=== PATIENT | male | born 1995 | race Two or more races ===

== ENCOUNTER 2024-02-29 12:36 | Inpatient (IN) | payer MEDICAID, OTHER ==
[~2024-02-29] VITALS: Ht 167.6 cm; Wt 102.0 kg
--- NOTE | 2024-02-29 13:20 | ED.PDOC ---
SOB-HPI HPI Comments 28y M who presents to the ED for chief complaint of flu-like symptoms. Pt states he has been having flu-like symptoms for the past 3-4 days. Pt states he has been having cough, congestion and runny nose with associated headache. Pt states he has sick contact of father at home. Pt otherwise denies any other symptoms. Pt in the ED has noted fever of 102.4F. Pt denies any other symptoms at this time. Chief Complaint: Flu like Time Seen by MD: 13:14 Information Source: Patient Mode of Arrival: Ambulatory Brought in by: self Constitutional: reports: fever; denies: chills, diaphoresis, fatigue, malaise, sweats, weakness, others EENTM: reports: nose congestion; denies: blurred vision, double vision, ear bleeding, ear discharge, ear drainage, ear pain, ear ringing, eye pain, eye redness, hearing loss, mouth pain, mouth swelling, nasal discharge, nose bleeding, nose pain, photophobia, tearing, throat pain, throat swelling, voice changes, others Respiratory: reports: cough, shortness of breath; denies: hemoptysis, orthopnea, SOB at rest, SOB with excertion, stridor, wheezing, others Cardiovascular: denies: chest pain, dizzy spells, diaphoresis, Dyspnea on exertion, edema, irregular heart beat, left arm pain, lightheadedness, palpitations, PND, syncope, others Gastrointestinal: denies: abdomen distended, abdominal pain, blood streaked bowels, constipated, diarrhea, dysphagia, difficulty swallowing, hematemesis, melena, nausea, poor appetite, poor fluid intake, rectal bleeding, rectal pain, vomiting, others Genitourinary: denies: burning, dysuria, flank pain, frequency, hematuria, incontinence, penile discharge, penile sore, pain, testicle pain, testicle swelling, urgency, others Neurological: denies: dizziness, fainting, headache, left sided numbness, left sided weakness, numbness, paresthesia, pre-existing deficit, right sided numbness, right sided weakness, seizure, speech problems, tingling, tremors, weakness, others Musculoskeletal: denies: back pain, gout, joint pain, joint swelling, muscle pain, muscle stiffness, neck pain, others Integumetry: denies: bruises, change in color, change in hair/nails, dryness, laceration, lesions, lumps, rash, wounds, others Allergic/Immunocompromised: denies: Difficulty Healing, Frequent Infections, Hives, Itching, others Hematologic/Lymphatic: denies: anemia, blood clots, easy bleeding, easy bruising, swollen glands, others Endocrine: denies: excessive hunger, excessive sweating, excessive thirst, excessive urination, flushing, intolerance to cold, intolerance to heat, unexplained weight gain, unexplained weight loss, others Psychiatric: denies: anxiety, bipolar disorder, depression, hopeless, panic disorder, schizophrenia, sleepless, suicidal, others All Other Systems: Reviewed and Negative Physical Exam General Appearance: Moderate Distress HEENT: Normal ENT Inspection, Pharynx Normal, TMs Normal Neck: Full Range of Motion, Non-Tender, Normal, Normal Inspection Respiratory: Chest Non-Tender, No Accessory Muscle Use, No Respiratory Distress, Wheezing Cardiovascular: No Edema, No JVD, No Murmur, No Gallop, Normal Peripheral Pulses, Regular Rate/Rhythm Breast Exam: Deferred Gastrointestinal: No Organomegaly, Non Tender, No Pulsatile Mass, Normal Bowel Sounds, Soft Genitalia: Deferred Pelvic: Deferred Rectal: Deferred Extremities: No calf tenderness, Normal capillary refill, Normal inspection, Normal range of motion, Non-tender, No pedal edema Musculoskeletal : Apperance: Normal Neurologic: Alert, account review specialist II-XII nml as Tested, No Motor Deficits, Normal Affect, Normal Mood, No Sensory Deficits Cerebellar Function: Normal Reflexes: Normal Skin: Dry, Normal Color, Warm Peripheral Pulses: 3+ Radial (R), 3+ Radial (L) Lymphatic: No Adenopathy Was a procedure done? Was a procedure done?: No Differential Dx Differential Diagnosis: Anxiety, Asthma, Bronchitis, Pneumonia, Respiratory Distress Comments influenza A and B, COVID, viral syndrome X-Ray, Labs, Meds, VS Vital Signs Date Time Temp Pulse Resp B/P (MAP) Pulse Ox O2 Delivery O2 Flow Rate FiO2 02/29/24 13:32 96 Room Air* 0 21 02/29/24 13:30 100.1 67 20 133/72 (92) 100 100.1 02/29/24 12:47 102.4 135 18 122/82 (95) 95 Lab Test 02/29/24 13:41 Range/Units Influenza Type A Antigen Pending Influenza Type B Antigen Pending SARS-CoV-2 Antigen (Rapid) Pending Current Medications Medications (Trade) Dose Ordered Sig/Caitie Route Start Time Stop Time Status Last Admin Methylprednisolone Sodium Succinate (Solu Medrol) 125 mg ONCE ONCE IV 02/29/24 13:15 02/29/24 13:16 DC 02/29/24 13:30 Albuterol (Ventolin Medneb) 5 mg ONCE ONCE NEB 02/29/24 13:15 02/29/24 13:16 DC 02/29/24 13:53 Ipratropium [place] (Atrovent Medneb) 0.5 mg ONCE ONCE NEB 02/29/24 13:15 02/29/24 13:16 DC 02/29/24 13:53 Ceftriaxone Sodium 50 ml @ 100 mls/hr ONCE ONCE IV 02/29/24 13:15 02/29/24 13:44 DC 02/29/24 13:30 Patient alert. Complaining of cough. Possible pneumonia. Saturation above 95%. Fever. Establish intravenous access. Was given steroid. Was given breathing treatment. Was given Rocephin. Reviewed his history. Explained to the patient. Continue cardiac monitoring. Time of 1ST Reevaluation: 13:45 Reevaluation 1ST: Unchanged Patient Education/Counseling: Diagnosis, Treatment Family Education/Counseling: No Family Present Departure 1 Departure Time of Disposition: 14:28 Impression: Primary Impression: Acute respiratory distress Additional Impression: Pneumonitis Disposition: ADMITTED INPATIENT Admit to: Med Surg Condition: Guarded Critical Care Note Critical Care Time?: Yes (45 min-critical care time only) Stability Stability form required: No Heart Score Heart Score: Heart Score Response (Comments) Value History N/A 0 EKG N/A 0 Age N/A 0 Risk Factors N/A 0 Troponin N/A 0 Total 0 I personally scribed for MARI GARCIA MD ([email or web address]) on 02/29/24 at 13:20. Electronically submitted by Latisha Lewis ([email or web address]). MARI GARCIA MD Feb 29, 2024 13:20
[2024-02-29] MEDS: methylPREDNISolone SOD SUCC 125 MG/2 ML VL IV ONE (13:30)
[2024-02-29] MEDS: cefTRIAXone 1GM/50ML D5W 50 ML IV ONE (13:30)
[2024-02-29 13:32] VITALS: O2SAT 96
[2024-02-29] MEDS: ALBUTEROL SULF 2.5 MG/0.5ML(0.5%) NEB SOLN NEB ONE (13:53)
[2024-02-29] MEDS: IPRATROPIUM BROM 0.5 MG/2.5ML INH SOL NEB ONE (13:53)
[2024-02-29 14:34] LABS: COVID19 ANTIGEN SOFIA FIA NEGATIVE (NEGATIVE)
[2024-02-29 14:36] LABS: Rapid Influenza A Positive (Negative); Rapid Influenza B Negative (Negative)
--- NOTE | 2024-02-29 14:55 | DVH ---
CHEST RADIOGRAPH Indication: cough Technique: Single frontal view of the chest was obtained COMPARISON: None FINDINGS: Lines and Tubes: None Lungs: Clear Pleura: No effusion. No pneumothorax. Cardiomediastinal contours: Unremarkable Bones: Unremarkable IMPRESSION: 1. No acute disease.
[2024-02-29] MEDS: AZITHROMYCIN 500MG/ 250ML 250 ML IV ONE (16:18)
[2024-03-01] VITALS (9 sets, daily range): BP systolic 103–124; BP diastolic 55–71; PULSE 97–115; RESP 17–21; TEMP 98.2–99.7; O2SAT 95–98
[2024-03-01] MEDS: OSELTAMIVIR 75 MG CAP PO ONE (00:17)
[2024-03-01 00:20] LABS: Basophils # (auto) 0 10 ^3/uL (0-0.2); Basophils % (auto) 0.4 % (0.0-2.0); Eosinophils # (auto) 0 10 ^3/uL (0-0.8); Hematocrit 47.1 % (41.0-53.0); Hemoglobin 16.2 g/dL (13.5-17.5); Lymphocytes # (auto) 1.4 10 ^3/uL (0.4-5.4); Lymphocytes % (auto) 15.6 % (10.0-50.0); Mean Corpuscular Hemoglobin 30.3 pg (28.0-32.0); Mean Corpuscular Hgb Conc. 34.4 g/dL (32.0-36.0); Mean Corpuscular Volume 87.9 fL (80.0-100.0); Monocytes # (auto) 0.2 10 ^3/uL (0-1.3); Monocytes % (auto) 2.4 % (0.0-12.0); Neutrophils # (auto) 7.3 10 ^3/uL (1.6-8.6); Neutrophils % (auto) 81.6 % (37.0-80.0); Platelet Count (auto) 276 10^3/uL (140-450); Red Blood Cells 5.36 10^6/uL (4.5-5.90); Red Cell Distribution Width 13.3 % (11.8-14.3); White Blood Cell 8.9 10^3/uL (4.4-10.8)
[2024-03-01] MEDS: SODIUM CHLORIDE 0.9% 1,000 ML IV ONE (00:21)
[2024-03-01 00:38] LABS: Alkaline Phosphatase 71 U/L (46-116); Anion Gap 9 (5-15); Aspartate Aminotransferase 33 U/L (13-40); BUN/Creatinine Ratio 9.6 (10.0-20.0); Blood Urea Nitrogen 11 mg/dL (9-23); Calcium 10.3 mg/dL (8.7-10.4); Carbon Dioxide 24 mmol/L (20-31); Chloride 104 mmol/L (98-107); Potassium 4.3 mmol/L (3.5-5.1); Sodium 137 mmol/L (136-145)
[2024-03-01 00:39] LABS: Alanine Aminotransferase 102 U/L (7-40); Albumin 5.1 g/dL (3.2-4.8); Bilirubin, Total 0.9 mg/dL (0.2-1.0); Glucose 142 mg/dL (74-106); Total Protein 8.3 g/dL (5.7-8.2)
--- NOTE | 2024-03-01 05:14 | DVHHPRES ---
History of Present Illness Resident Creating Document: [place]NTHIAJORDINDAK[place] RESIDENT History of Present Illness Patient is a 28-year-old male significant past medical history came to the ED with a chief complain of flu-like symptoms in the past 3-4 days. Patient reports about 4 days ago he started having cough, cold, congestion, sore throat associated with headache fever and chills. Last night patient reported he had difficulty breathing as he was coughing nonstop following which she came to the ED today for further evaluation. Past medical history: None Past surgical history: None Social history: Denies smoking, alcohol, other illicit drug use No home medication Review of Systems Review of Systems Patient reports to be feeling better time he has come to the ED. Denies shortness of breath. No fever, no difficulty swallowing, cough has improved Allergies: Coded Allergies: NO KNOWN ALLERGIES (Unverified , 02/29/24) Medications Current Medications Medications Dose Ordered Sig/Caitie Route Start Time Stop Time Status Last Admin Dose Admin Azithromycin 250 ml @ 125 mls/hr DAILY@1600 IV 03/01/24 16:00 Oseltamivir Phosphate 75 mg Q12HR PO 03/01/24 10:00 03/06/24 09:59 UNV Exam Vital Signs Vital Signs Date Time Temp Pulse Resp B/P (MAP) Pulse Ox O2 Delivery O2 Flow Rate FiO2 03/01/24 04:00 98.7 92 19 113/72 (86) 95 98.7 03/01/24 03:38 Room Air* 0 21 Exam Physical Examination Constitutional: Patient was alert and oriented to time, place and person and does not appear to be in any acute distress. Gen - no pallor, no icterus, no cyanosis, no clubbing, no LAD, no edema . Skin - Patients skin is warm and dry.. HEENT - normocephalic, atraumatic, moist mucous membranes. Bilateral tonsillar enlargement is seen without purulent exudate. Neck - full ROM, no LAD Pulmonary - B/L vesicular breath sounds. no crackles , no wheezing, no stridor. cardiovascular - normal S1,S2 heard. no murmurs heard. peripheral pulses radial 2+, pedal 2+. GI - soft abdomen without tenderness to palpation . no hepatospleenomegaly. Bowel sounds normoactive Neurological - Bilateral upper extremity strength 5/5, bilateral lower extremity strength 5/5, no facial droop, normal speech, no tremor, no sensory deficiets. Labs/Xrays Labs Test 02/29/24 23:51 02/29/24 13:41 Range/Units White Blood Count 8.9 4.4-10.8 10^3/uL Red Blood Count 5.36 4.5-5.90 10^6/uL Hemoglobin 16.2 13.5-17.5 g/dL Hematocrit 47.1 41.0-53.0 % Mean Corpuscular Volume 87.9 80.0-100.0 fL Mean Corpuscular Hemoglobin 30.3 28.0-32.0 pg Mean Corpuscular Hemoglobin Concent 34.4 32.0-36.0 g/dL Red Cell Distribution Width 13.3 11.8-14.3 % Platelet Count 276 140-450 10^3/uL Mean Platelet Volume 8.1 6.9-10.8 fL Neutrophils (%) (Auto) 81.6 H 37.0-80.0 % Lymphocytes (%) (Auto) 15.6 10.0-50.0 % Monocytes (%) (Auto) 2.4 0.0-12.0 % Eosinophils (%) (Auto) 0.0 0.0-7.0 % Basophils (%) (Auto) 0.4 0.0-2.0 % Neutrophils # (Auto) 7.3 1.6-8.6 10 ^3/uL Lymphocytes # (Auto) 1.4 0.4-5.4 10 ^3/uL Monocytes # (Auto) 0.2 0-1.3 10 ^3/uL Eosinophils # (Auto) 0 0-0.8 10 ^3/uL Basophils # (Auto) 0 0-0.2 10 ^3/uL Nucleated Red Blood Cells 0.0 % Sodium Level 137 136-145 mmol/L Potassium Level 4.3 3.5-5.1 mmol/L Chloride Level 104 98-107 mmol/L Carbon Dioxide Level 24 20-31 mmol/L Anion Gap 9 5-15 Blood Urea Nitrogen 11 9-23 mg/dL Creatinine 1.14 0.700-1.30 mg/dL Glomerular Filtration Rate Calc 91 >90 mL/min BUN/Creatinine Ratio 9.6 L 10.0-20.0 Serum Glucose 142 H 74-106 mg/dL Calcium Level 10.3 8.7-10.4 mg/dL Total Bilirubin 0.9 0.2-1.0 mg/dL Aspartate Amino Transferase (AST) 33 13-40 U/L Alanine Aminotransferase (ALT) 102 H 7-40 U/L Alkaline Phosphatase 71 46-116 U/L Total Protein 8.3 H 5.7-8.2 g/dL Albumin 5.1 H 3.2-4.8 g/dL Influenza Type A Antigen Positive Negative Influenza Type B Antigen Negative Negative SARS-CoV-2 Antigen (Rapid) Negative NEGATIVE Assessment/Plan Assessment/Plan # acute tonsillitis # influenza infection # sirs positive - bilateral swollen tonsils seen oral examination - given azithromycin 500 mg IV and ceftriaxone 1 g IV once - nebulizer with a ipratropium albuterol given once and 1 dose of IV Solu-Medrol 125 mg given - patient is started on Augmentin 875 mg q.12 hours - oseltamivir 75 mg q.12 hours p.o. - DuoNebs p.r.n. for shortness of breath - IV fluids 1 L NS at 125 mL/hr Goals of care discussed with the patient for over 21 minutes. Full code Plan discussed with Dr. Ndiaye Plan discussed with: Patient My Orders Orders - CAROL MARIE RESIDENT Procedure Category Date Status Time Admit ADMIT 02/29/24 Transmitted 23:10 Azithromycin 500mg/ PHA 03/01/24 In Process 250ml (Zithromax 50 16:00 Urinalysis LAB 02/29/24 Logged 23:10 Drug Screen LAB 02/29/24 Logged 23:10 Oseltamivir 75mg PHA 03/01/24 Pending Capsule (Tamiflu 75mg 10:00 Sodium Chloride 0.9% PHA 02/29/24 In Process 23:30 Date of Service: Feb 29, 2024 Billing Provider: MY NDIAYE MD Common Visit Codes: [id number] INP/OBS CARE (HIGH) CAROL MARIE RESIDENT Mar 01, 2024 05:14 MY NDIAYE MD Mar 01, 2024 11:18
[2024-03-01] MEDS ORDERED: ACETAMINOPHEN 325 MG TAB PO PRN (06:45)
[2024-03-01 07:05] LABS: Urine Bacteria None Seen /hpf (None Seen)
[2024-03-01 07:22] LABS: Urine Blood Negative /uL (Negative); Urine Budding Yeast OCCASIONAL /hpf (None Seen); Urine Clarity Clear (Clear); Urine Color Yellow (Yellow); Urine Hyaline Cast FEW /lpf (0 - 2); Urine Mucus FEW (None Seen); Urine Protein, UAD 2+ (Negative); Urine Specific Gravity 1.034 (1.001-1.035); Urine Squamous Epithelial Cell None Seen /hpf (<5); Urine Urobilinogen Normal (Negative); Urine WBC <1 /hpf (0 - 3); Urine pH 5.5 (5.0-9.0)
[2024-03-01 07:35] LABS: Opiate Scree,Urine Neg (NEGATIVE)
[2024-03-01 07:36] LABS: Amphetamine Screen, Urine Neg (NEGATIVE); Barbiturate Scree,Urine Neg (NEGATIVE); Benzodiazephine Screen, Urine Neg (NEGATIVE); Cannabinoid Screen, Urine Neg (NEGATIVE); Cocaine Screen, Urine Neg (NEGATIVE); Phencyclidine Screen, Urine Neg (NEGATIVE)
[2024-03-01 08:09] LABS: Basophils # (auto) 0 10 ^3/uL (0-0.2); Basophils % (auto) 0.2 % (0.0-2.0); Eosinophils # (auto) 0 10 ^3/uL (0-0.8); Hematocrit 44.4 % (41.0-53.0); Hemoglobin 15.3 g/dL (13.5-17.5); Lymphocytes # (auto) 1.8 10 ^3/uL (0.4-5.4); Lymphocytes % (auto) 20.1 % (10.0-50.0); Mean Corpuscular Hemoglobin 30.4 pg (28.0-32.0); Mean Corpuscular Hgb Conc. 34.5 g/dL (32.0-36.0); Mean Corpuscular Volume 88.1 fL (80.0-100.0); Monocytes # (auto) 1.1 10 ^3/uL (0-1.3); Monocytes % (auto) 12.1 % (0.0-12.0); Neutrophils # (auto) 6.1 10 ^3/uL (1.6-8.6); Neutrophils % (auto) 67.6 % (37.0-80.0); Platelet Count (auto) 253 10^3/uL (140-450); Red Blood Cells 5.04 10^6/uL (4.5-5.90); Red Cell Distribution Width 13.2 % (11.8-14.3); White Blood Cell 9.1 10^3/uL (4.4-10.8)
[2024-03-01 08:19] LABS: Albumin 4.8 g/dL (3.2-4.8); Alkaline Phosphatase 64 U/L (46-116); Anion Gap 9 (5-15); Aspartate Aminotransferase 31 U/L (13-40); BUN/Creatinine Ratio 13.5 (10.0-20.0); Bilirubin, Total 0.8 mg/dL (0.2-1.0); Blood Urea Nitrogen 14 mg/dL (9-23); Calcium 9.9 mg/dL (8.7-10.4); Carbon Dioxide 24 mmol/L (20-31); Chloride 105 mmol/L (98-107); Sodium 138 mmol/L (136-145); Total Protein 7.6 g/dL (5.7-8.2)
[2024-03-01 08:20] LABS: Alanine Aminotransferase 90 U/L (7-40); Glucose 126 mg/dL (74-106)
[2024-03-01] MEDS: OSELTAMIVIR 75 MG CAP PO SCH (09:48)
[2024-03-01] MEDS: AMOXICILLIN/CLAVUL 875 MG TAB PO SCH (09:48)
[2024-03-01] MEDS: IPRATROPIUM BROM 0.5 MG/2.5ML INH SOL NEB PRN (09:53)
[2024-03-01] MEDS: ALBUTEROL SULF 2.5 MG/0.5ML(0.5%) NEB SOLN NEB PRN (09:53)
[2024-03-01] MEDS ORDERED: AZITHROMYCIN 500MG/ 250ML 250 ML IV SCH (16:00)
--- NOTE | 2024-03-01 16:58 | DVHPNRES ---
Progress Note Date Seen: Mar 01, 2024 Resident Creating Document: HERBIE RAIN AURORA Has the PT tested + for MRSA If YES, has PT been informed?: No Medical Necessity Reason Pt with a Central, PICC or Fol: No Subjective Review of Systems Patient is a 28-year-old male significant past medical history came to the ED with a chief complain of flu-like symptoms in the past 3-4 days. Patient reports about 4 days ago he started having cough, cold, congestion, sore throat associated with headache fever and chills. Last night patient reported he had difficulty breathing as he was coughing nonstop following which she came to the ED today for further evaluation. The patient was also complaining of shortness of breath, could not maintain saturation on room air, put on oxygen through nasal cannula at 2 liters/minute. Past medical history: None Past surgical history: None Social history: Denies smoking, alcohol, other illicit drug use No home medication Today, the patient was seen and examined at the bedside. Patient was feeling better since admission. Also complained of shortness of breaths, patient required oxygen through nasal cannula. Patient reports: No new complaints, Feels better Changes from previous H/P or p: No Changes Objective vital signs Vital Sign Date Time Temp Pulse Resp B/P (MAP) Pulse Ox O2 Delivery O2 Flow Rate FiO2 03/01/24 13:24 106 21 96 Nasal Cannula* 2 28 03/01/24 13:24 99.6 115/60 (78) 99.6 Total Intake and Output 02/29/24 02/29/24 03/01/24 15:00 23:00 07:00 Intake Total 125 ml Balance 125 ml medications Current Medications Medications Dose Ordered Sig/Caitie Route Start Time Stop Time Status Last Admin Dose Admin Oseltamivir Phosphate 75 mg Q12HR PO 03/01/24 10:00 03/06/24 09:59 03/01/24 09:48 75 MG Amoxicillin/ Clavulanate Potassium 875 mg Q12HR PO 03/01/24 10:00 03/01/24 09:48 875 MG Albuterol 2.5 mg Q8HPRN PRN NEB 03/01/24 06:45 03/01/24 09:53 2.5 MG Ipratropium [place] 0.5 mg Q8HPRN PRN NEB 03/01/24 06:45 03/01/24 09:53 0.5 MG Acetaminophen 650 mg Q4HP PRN PO 03/01/24 06:45 Examination General Appearance: Alert, Oriented X3, Cooperative, No acute distress HEENT: Bilateral swollen with pus discharged tonsils, red pharynx Respiratory: Bilateral mild crackles Cardiovascular: Regular rate, Normal S1, Normal S2, No murmurs, no chest wall tenderness Abdominal: Normal bowel sounds, Soft, No tenderness, No hepatospenomegaly, No masses Extremities: No clubbing, No cyanosis, No edema, Normal pulses, No tenderness/swelling Skin: No rashes, No breakdown, No significant lesion Neuro: Normal gait, Normal speech, Strength at 5/5 X4 ext, Normal tone, Sensation intact, Cranial nerves 3-12 NL, Reflexes 2+ Psych/Mental Status: Mental status NL, Mood NL laboratory and microbiology Laboratory Tests 03/01/24 07:18 Test 03/01/24 07:18 Range/Units Serum Glucose 126 H 74-106 mg/dL Labs and/or images reviewed: Labs reviewed by me, Image(s) reviewed by me Problem List/Assessment/Plan Problem List/Assessment/Plan Acute hypoxic respiratory failure, likely due to atypical pneumonia /influenza Sepsis, likely due to pneumonia/influenza Pneumonia, likely due to atypical bacteria Acute tonsillitis/pharyngitis Influenza type A Chest x-ray shows bilateral reticulonodular infiltration Check MRSA nares Empiric antibiotic Augmentin Oseltamivir 75 mg b.i.d. Nebulization with albuterol Oxygen through nasal cannula History of fatty liver Patient counseled for the healthy lifestyle including exercise and healthy food Obesity, grade 2 Patient counseled for the healthy lifestyle including exercise and healthy food for more than 17 minutes Current smoker The patient counseled for the smoking risk, and smoking cessation for more than 18 minutes DIET: Regular DVT PROPHYLAXIS: No indication for the anticoagulant GI PROPHYLAXIS:: No indication for PPI BOWEL REGIMEN: Patient has normal bowel movement CODE STATUS: Goal of care discussed for more than 26 minute, full code DISPOSITION: Med surge Patient's status discussed with the patient. Case discussed with Dr. Alexandre Plan discussed with: Patient, Other (RN) My Orders My Orders Orders - HERBIE RAIN RESDIENT Procedure Category Date Status Time Schedule For [facility] 03/01/24 In Process Clinic F/U 14:20 Date of Service: Mar 01, 2024 Billing Provider: DELMY CORDOVA MD Common Visit Codes: [id number] INP/OBS CARE(HIGH) [facility] Mar 01, 2024 16:58 DELMY CORDOVA MD Mar 04, 2024 09:45
[2024-03-01] MEDS: ACETAMINOPHEN 325 MG TAB PO ONE (17:15)
[2024-03-01] MEDS: KETOROLAC TROMETH 30 MG/ML 1ML VIAL IV ONE (17:15)
[2024-03-02] VITALS (8 sets, daily range): BP systolic 109–126; BP diastolic 57–74; PULSE 65–105; RESP 16–18; TEMP 98.2–99.5; O2SAT 96–99
[2024-03-02 06:03] LABS: Albumin 4.4 g/dL (3.2-4.8); Alkaline Phosphatase 67 U/L (46-116); Anion Gap 8 (5-15); BUN/Creatinine Ratio 10.7 (10.0-20.0); Bilirubin, Total 0.5 mg/dL (0.2-1.0); Blood Urea Nitrogen 13 mg/dL (9-23); Calcium 9.7 mg/dL (8.7-10.4); Carbon Dioxide 26 mmol/L (20-31); Chloride 106 mmol/L (98-107); Glucose 101 mg/dL (74-106); Potassium 4.2 mmol/L (3.5-5.1); Sodium 140 mmol/L (136-145); Total Protein 7.2 g/dL (5.7-8.2)
[2024-03-02 06:11] LABS: Basophils # (auto) 0.1 10 ^3/uL (0-0.2); Basophils % (auto) 0.8 % (0.0-2.0); Eosinophils # (auto) 0.1 10 ^3/uL (0-0.8); Eosinophils % (auto) 1.6 % (0.0-7.0); Hematocrit 45.4 % (41.0-53.0); Hemoglobin 15.8 g/dL (13.5-17.5); Lymphocytes # (auto) 2.4 10 ^3/uL (0.4-5.4); Lymphocytes % (auto) 30.6 % (10.0-50.0); Mean Corpuscular Hemoglobin 31.2 pg (28.0-32.0); Mean Corpuscular Hgb Conc. 34.9 g/dL (32.0-36.0); Mean Corpuscular Volume 89.6 fL (80.0-100.0); Monocytes # (auto) 1.1 10 ^3/uL (0-1.3); Monocytes % (auto) 13.6 % (0.0-12.0); Neutrophils # (auto) 4.2 10 ^3/uL (1.6-8.6); Neutrophils % (auto) 53.4 % (37.0-80.0); Nucleated Red Blood Cells % 0.2 %; Platelet Count (auto) 229 10^3/uL (140-450); Red Blood Cells 5.07 10^6/uL (4.5-5.90); White Blood Cell 7.9 10^3/uL (4.4-10.8)
[2024-03-02 06:50] LABS: Alanine Aminotransferase 117 U/L (7-40); Aspartate Aminotransferase 52 U/L (13-40)
[2024-03-02] MEDS ORDERED: TAMIFLU PO (10:39)
[2024-03-02] MEDS ORDERED: AUG875T PO (10:39)
[2024-03-02 11:03] LABS: Rapid Strep A Screen-Throat Negative
--- NOTE | 2024-03-02 14:15 | DVHDSRES ---
Discharge Summary Date of Admission Resident Creating Document: HERBIE RAIN RESDIENT Feb 29, 2024 at 23:10 Date of Discharge: Mar 01, 2024 Admitting Diagnosis Influenza infection Labs/Diagnostic Data: Laboratory Results Test 03/02/24 06:12 03/02/24 04:54 03/01/24 06:50 02/29/24 13:41 Group A Streptococcus Rapid Negative White Blood Count 7.9 10^3/uL (4.4-10.8) Red Blood Count 5.07 10^6/uL (4.5-5.90) Hemoglobin 15.8 g/dL (13.5-17.5) Hematocrit 45.4 % (41.0-53.0) Mean Corpuscular Volume 89.6 fL (80.0-100.0) Mean Corpuscular Hemoglobin 31.2 pg (28.0-32.0) Mean Corpuscular Hemoglobin Concent 34.9 g/dL (32.0-36.0) Red Cell Distribution Width 13.0 % (11.8-14.3) Platelet Count 229 10^3/uL (140-450) Mean Platelet Volume 8.4 fL (6.9-10.8) Neutrophils (%) (Auto) 53.4 % (37.0-80.0) Lymphocytes (%) (Auto) 30.6 % (10.0-50.0) Monocytes (%) (Auto) 13.6 % (0.0-12.0) Eosinophils (%) (Auto) 1.6 % (0.0-7.0) Basophils (%) (Auto) 0.8 % (0.0-2.0) Neutrophils # (Auto) 4.2 10 ^3/uL (1.6-8.6) Lymphocytes # (Auto) 2.4 10 ^3/uL (0.4-5.4) Monocytes # (Auto) 1.1 10 ^3/uL (0-1.3) Eosinophils # (Auto) 0.1 10 ^3/uL (0-0.8) Basophils # (Auto) 0.1 10 ^3/uL (0-0.2) Nucleated Red Blood Cells 0.2 % Sodium Level 140 mmol/L (136-145) Potassium Level 4.2 mmol/L (3.5-5.1) Chloride Level 106 mmol/L (98-107) Carbon Dioxide Level 26 mmol/L (20-31) Anion Gap 8 (5-15) Blood Urea Nitrogen 13 mg/dL (9-23) Creatinine 1.21 mg/dL (0.700-1.30) Glomerular Filtration Rate Calc 85 mL/min (>90) BUN/Creatinine Ratio 10.7 (10.0-20.0) Serum Glucose 101 mg/dL (74-106) Calcium Level 9.7 mg/dL (8.7-10.4) Total Bilirubin 0.5 mg/dL (0.2-1.0) Aspartate Amino Transferase (AST) 52 U/L (13-40) Alanine Aminotransferase (ALT) 117 U/L (7-40) Alkaline Phosphatase 67 U/L (46-116) Total Protein 7.2 g/dL (5.7-8.2) Albumin 4.4 g/dL (3.2-4.8) Urine Color Yellow (Yellow) Urine Clarity Clear (Clear) Urine pH 5.5 (5.0-9.0) Urine Specific [place] 1.034 (1.001-1.035) Urine Protein 2+ (Negative) Urine Ketones 1+ (Negative) Urine Blood Negative /uL (Negative) Urine Nitrite Negative (Negative) Urine Bilirubin Negative (Negative) Urine Urobilinogen Normal mg/dL (Negative) Urine Leukocyte Esterase Negative /uL (Negative) Urine RBC <1 /hpf (0 - 3) Urine WBC <1 /hpf (0 - 3) Urine Squamous Epithelial Cells None seen /hpf (<5) Urine Bacteria None seen /hpf (None Seen) Urine Hyaline Casts Few /lpf (0 - 2) Urine Mucus Few (None Seen) Urine Yeast (Budding) Occasional /hpf (None Urine Glucose Normal mg/dL (Normal) Urine Opiates Screen Neg (NEGATIVE) Urine Fentanyl Screen Neg (NEGATIVE) Urine Barbiturates Screen Neg (NEGATIVE) Urine Phencyclidine Screen Neg (NEGATIVE) Urine Amphetamines Screen Neg (NEGATIVE) Urine Benzodiazepines Screen Neg (NEGATIVE) Urine Cocaine Screen Neg (NEGATIVE) Urine Cannabinoids Screen Neg (NEGATIVE) Influenza Type A Antigen Positive (Negative) Influenza Type B Antigen Negative (Negative) SARS-CoV-2 Antigen (Rapid) Negative (NEGATIVE) Other Laboratory Tests 03/02/24 04:54 Brief Hx & Hospital Course: Patient is a 28-year-old male with no significant past medical history who came to the ED with a chief complaint of flu-like symptoms over the past 3-4 days. The patient reports that about 4 days ago, he started having a cough, cold, congestion, and sore throat, associated with headache, fever, and chills. Last night, the patient reported difficulty breathing as he was coughing nonstop, which led him to come to the ED today for further evaluation. The patient also complained of shortness of breath and could not maintain oxygen saturation on room air, so he was put on oxygen through a nasal cannula at 2 liters/minute. Chest x-ray showed bilateral reticulonodular infiltration, on oral examination both tonsils were swollen and inflamed. Influenza type B antigen was positive. The patient was put on acute hypoxic respiratory failure likely due to atypical pneumonia/influenza treatment. The patient was given injection methylprednisolone, ceftriaxone, azithromycin and later on the antibiotics were changed to Augmentin. For influenza the patient we are given oseltamivir, due to drop of oxygen saturation, the patient was put on nasal cannula, and nebulization were given throughout the hospitalization course. Patient was also counseled regarding the smoking cessation, and healthy lifestyle because of the obesity. On 03/02, the patient was feeling better since admission. Patient was clinically and hemodynamically stable. The patient was maintaining saturation on room air. Discharge plan discussed with the patient and the patient was discharge. Discharge plan: Follow up with the PCP within 1 week of the discharge. Tablet Augmentin b.i.d. for 8 days Tablet Tamiflu for 5 days Patient was counseled that could use [id number] pain killer for the sore throat Follow up with the discharge within 1 week after discharge Operations or Procedures [place] [id number] Ph: [phone] DIAGNOSTIC IMAGING Diagnostic Imaging Report : [id number] Signed PATIENT: YOCASTA SARGENT ACCT: [id number] UNIT: [id number] : 1995 LOC: ER ROOM / BED: / AGE / SEX: 28 / M ADM STATUS: REG ER SERVICE 1426 ORDERING PHYSICIAN: MRAI GARCIA MD PROCEDURE(s): CXRP - CHEST PORTABLE REASON: cough ORDER NUMBER(s): [id number], ACCESSION NUMBER(s): [id number] CHEST RADIOGRAPH Indication: cough Technique: Single frontal view of the chest was obtained COMPARISON: None FINDINGS: Lines and Tubes: None Lungs: Clear Pleura: No effusion. No pneumothorax. Cardiomediastinal contours: Unremarkable Bones: Unremarkable IMPRESSION: 1. No acute disease. ATED BY: BUFFY HINES MD DICTATED DATE/TIME: 02/29/241452 SIGNED BY: BUFFY HINES MD SIGNED DATE/TIME: 02/29/241452 CC: Condition at Discharge: Good Final Diagnosis/Problems List Acute hypoxic respiratory failure, likely due to atypical pneumonia /influenza Sepsis, likely due to pneumonia/influenza Pneumonia, likely due to atypical bacteria Acute tonsillitis/pharyngitis Influenza type A History of fatty liver Obesity, grade 2 Current smoker Discharge Disposition: Home Discharge Instruct/Medications Diet: Regular Activity: No Restrictions, As Tolerated Follow Up/Referral: Follow up with the PCP within 1 week of the discharge Follow up with the [facility] within 1 week of the discharge Medications: Tablet Augmentin daily for 8 days Tamiflu 75 mg b.i.d. for 5 days Discharge Statement: "Patient was advised to return to the ER or call 911 if any headaches, dizziness, shortness of breath, chest pain, abdominal pain, bleeding, fevers, or worsening of medical condition. Patient was counseled about treatment plan, medications, possible side effects, patientverbalized understanding. All questions were answered to the best of my ability. This discharge took greater then 30 minutes in planning, reviewing documentation, counseling the patient, and discussing with other team members." ASSESSMENT ASSESSMENT Assessment tonsillitis Influenza Date of Service: Mar 01, 2024 Billing Provider: DELMY CORDOVA MD Common Visit Codes: [id number] DISCH DAY >30min HERBIE RAIN RESDIENT Mar 02, 2024 14:15 DELMY CORDOVA MD Mar 10, 2024 09:29
== END 2024-03-02 15:20 | disposition home or self-care (01) | DRG 720 ==
LOC: ER 12:36 → OVERFLOW 23:10 → CENTRAL 03-01 12:56
PROVIDERS: ADMIT Student in an Organized Health Care Education/Training Program; ATTEND Emergency Medicine
DX: A41.9 Sepsis, unspecified organism (principal); J96.01 Acute respiratory failure with hypoxia; J10.00 Influenza due to other identified influenza virus with unspecified type of pneumonia; J15.8 Pneumonia due to other specified bacteria; Z20.822 Contact with and (suspected) exposure to COVID-19; K76.0 Fatty (change of) liver, not elsewhere classified; J03.90 Acute tonsillitis, unspecified; E66.812 Obesity, class 2; Z68.36 Body mass index [BMI] 36.0-36.9, adult
CPT/HCPCS: 36415; 71045; 80053; 80307; 81001; 85025; 87070; 87426; 87804; 87880; 94640; 99291; G0378; J1885